=== PATIENT | male | born 1960 | race Caucasian/White ===

== ENCOUNTER 2020-10-15 12:27 | Outpatient (CLI) | payer MEDICARE ==
[2020-10-15 14:14] LABS: Anion Gap 14 mmol/L (10-20); BUN (Urea Nitrogen) 9 mg/dL (8.4-25.7); Calc. Creatinine Clearance 0 mL/min (70-130); Calcium 8.9 mg/dL (7.8-10.44); Carbon Dioxide 24 mmol/L (22-29); Chloride 104 mmol/L (98-107); Glucose 144 mg/dL (70-105); Potassium 4.6 mmol/L (3.5-5.1); Sodium 137 mmol/L (136-145)
[2020-10-15 14:37] LABS: Hemoglobin 16.2 g/dL (13.5-17.5); Mean Corpuscular HGB CONC 35.1 g/dL (32.0-36.0); Mean Corpuscular Volume 88.3 fl (81.2-95.1); Mean Platelet Volume 10.5 fl (7.4-10.4); Platelet Count 157 10x3/uL (150-450); RBC Distribution Width 11.6 % (11.5-14.5); Red Blood Cell (RBC) Count 5.23 10x6/uL (4.32-5.72); White Blood Cell (WBC) Count 5.9 10x3/uL (3.5-10.5)
[2020-10-15 22:09] LABS: SARS-CoV-2 PCR by NAA Not Detected (NotDetected)
== END 2020-10-15 12:28 | disposition home or self-care (01) ==
LOC: LABBT 12:27
PROVIDERS: ATTEND Neurological Surgery
DX: Z01.818 Encounter for other preprocedural examination (principal); M48.062 Spinal stenosis, lumbar region with neurogenic claudication; Z20.822 Contact with and (suspected) exposure to COVID-19
CPT/HCPCS: 80048; 85027; 93005; U0003; U0005; 87635; 93010

== ENCOUNTER 2020-10-20 05:46 | Day surgery (SDC) | payer MEDICARE ==
[2020-10-16 15:05] VITALS: BMI 31.4
[2020-10-20] MEDS ORDERED: Famotidine/PF 20 mg/2ml Vial ONE (07:00)
[2020-10-20] MEDS ORDERED: ePHEDrine 50 MG/ML VIAL ONE (07:21)
[2020-10-20] MEDS ORDERED: PROPOFOL 200 MG/20 ML VIAL ONE (07:21)
[2020-10-20] MEDS ORDERED: Rocuronium Bromide 10 MG/ML (10ML VIAL) ONE (07:21)
[2020-10-20] MEDS ORDERED: diphenhydrAMINE 50 MG/ML VIAL ONE (07:21)
[2020-10-20] MEDS ORDERED: Lidocaine 1% PF 5 ML VIAL ONE (07:21)
[2020-10-20] MEDS ORDERED: Ondansetron PF 4 MG/2 ML Vial ONE (07:21)
[2020-10-20] MEDS ORDERED: Glycopyrrolate 0.2 MG/ML 5 ML SYRINGE ONE (07:21)
[2020-10-20] MEDS ORDERED: Fentanyl 100 MCG/2 ML VIAL ONE ×3 (07:28→11:14)
[2020-10-20] MEDS ORDERED: Midazolam HCl 2 mg/2 ml Vial ONE (07:28)
[2020-10-20] MEDS ORDERED: HYDROmorphone 2 MG/ML VIAL ONE (09:17)
[2020-10-20] MEDS ORDERED: Tamsulosin HCl 0.4 MG CAP ONE (09:36)
[2020-10-20] MEDS ORDERED: hydrALAZINE 20 MG/ML VIAL ONE (10:07)
== END 2020-10-20 13:30 | disposition home or self-care (01) ==
LOC: SDC 05:46
PROVIDERS: ATTEND Neurological Surgery
PROC: 0SG0071 Fusion of Lumbar Vertebral Joint with Autologous Tissue Substitute, Posterior Approach, Posterior Column, Open Approach (ICD-10-PCS; principal; 2020-10-20)
DX: M48.062 Spinal stenosis, lumbar region with neurogenic claudication (principal); I10 Essential (primary) hypertension; E78.5 Hyperlipidemia, unspecified; E11.9 Type 2 diabetes mellitus without complications; G20 Parkinson's disease; G89.4 Chronic pain syndrome; F17.200 Nicotine dependence, unspecified, uncomplicated; Z79.84 Long term (current) use of oral hypoglycemic drugs; Z79.891 Long term (current) use of opiate analgesic; Z79.899 Other long term (current) drug therapy
CPT/HCPCS: 76000; C1713; C1768; J0360; J0690; J1170; J1200; J2250; J2405; J2704; J3010; J3370; J3490; S0028

== ENCOUNTER 2020-11-05 08:21 | Outpatient (CLI) | payer MEDICARE | END 2020-11-05 08:22 | disposition home or self-care (01) | LOC: TBSIIMAG 08:21 | PROVIDERS: ATTEND Neurological Surgery | DX: M48.062 Spinal stenosis, lumbar region with neurogenic claudication (principal); M47.816 Spondylosis without myelopathy or radiculopathy, lumbar region; Z98.890 Other specified postprocedural states | CPT/HCPCS: 72100 ==